=== PATIENT | female | born 1940 | race Caucasian/White ===

== ENCOUNTER 2016-09-06 10:16 | Outpatient (CLI) | payer MEDICARE, OTHER ==
--- NOTE | 2016-09-06 20:52 | Ultrasound Report ---
EXAM: THYROID ULTRASOUND EXAM DATE: 09/06/2016 10:25 AM. CLINICAL HISTORY: THROAT IRRITATION, HYPOTHYROIDISM. COMPARISON: None. TECHNIQUE: Real time sonographic imaging of the thyroid was performed by the linen manager. Multiple re presentative static images were saved for review. FINDINGS: THYROID GLAND: Right Lobe: 3.8 x 1.9 x 1.6 cm, volume 6 cc. Normal background echotexture. Right Lobe Nodules: Well-circumscribed 1.3 x 1.0 x 1.2 cm nodule in the mid lobe is homogeneously hyp erechoic except for a small central hypoechoic portion. The nodule has a hypoechoic rim. There is int ernal vascular flow. No calcifications. Left Lobe: 3.6 x 1.1 x 1.7 cm, volume 4 cc. Normal background echotexture. Left Lobe Nodules: Isoechoic nodule in the lower pole contains a 1.0 cm coarse calcification; the nod ule itself measures approximately 1.3 x 0.8 x 1.0 cm, although the posterior portion is obscured by s hadowing. The visualized portion of the nodule is well-circumscribed. There is mild peripheral vascul ar flow. Isthmus: 0.4 cm AP. Isthmic Nodules: None. LYMPH NODES: No adenopathy demonstrated in the central or lateral compartment. OTHER: None. IMPRESSION: Bilateral thyroid nodules as detailed above. These nodules do not currently meet criteria for tissue sampling. Follow-up thyroid ultrasound is recommended in 12 months. Management recommendations are based on 2015 [place] [employer] Management Guidelines for A dult Patients with Thyroid Nodules and Differentiated Thyroid Cancer. [facility] Referring Provider Line: [phone] SITE ID: [id number]
== END 2016-09-06 10:17 | disposition home or self-care (01) ==
LOC: DI 10:16
PROVIDERS: ATTEND Family Medicine
DX: E04.2 Nontoxic multinodular goiter (principal)
CPT/HCPCS: 76536

== ENCOUNTER 2016-10-17 09:24 | Outpatient (CLI) | payer MEDICARE, OTHER ==
--- NOTE | 2016-10-17 12:29 | XRAY Report ---
SINGLE AND DOUBLE CONTRAST UPPER GI: 10/17/2016 CLINICAL INDICATION: Dysphagia. FINDINGS: Single and double contrast upper GI was performed. There is a small Zenker's diverticulum in the cervical esophagus. There is a stricturing at the inferior aspect of the cervical esophagus, w hich produced obstruction to passage of the 13 mm barium pill despite multiple attempts. The mid to d istal portions of the esophagus appear unremarkable. No other focal stricturing is seen. Gastroesopha geal reflux was seen throughout the course of the study. The stomach demonstrates a normal fold patte rn. The duodenal cap distends normally. The duodenal C-loop is unremarkable. Multiple duodenal and je junal diverticula are noted. IMPRESSION: 1. STRICTURING OF THE LOWER CERVICAL ESOPHAGUS, WHICH DID OBSTRUCT THE PASSAGE OF THE 13 MM BARIUM PI LL. 2. SMALL ZENKER'S DIVERTICULUM ARISING JUST ABOVE THE LEVEL OF THE CERVICAL ESOPHAGEAL STRICTURING. 3. GASTROESOPHAGEAL REFLUX. FLUOROSCOPY TIME: 3 MINUTES 52 SECONDS; 32 SPOT IMAGES OBTAINED. JOB #: [id number] EXT JOB #:[id number]
== END 2016-10-17 09:25 | disposition home or self-care (01) ==
LOC: DI 09:24
PROVIDERS: ATTEND Family Medicine
DX: K22.2 Esophageal obstruction (principal); K22.5 Diverticulum of esophagus, acquired; K21.9 Gastro-esophageal reflux disease without esophagitis
CPT/HCPCS: 74246

== ENCOUNTER 2016-10-31 07:59 | Day surgery (SDC) | payer MEDICARE, OTHER ==
[2016-10-31] MEDS ORDERED: LACTATED RINGERS 1,000 ML IV ONE (08:34)
[2016-10-31] MEDS ORDERED: fentaNYL 100 MCG/2 ML VIAL IVP ONE (09:15)
[2016-10-31] MEDS ORDERED: MIDAZOLAM 2 MG/2 ML VIAL IVP ONE (09:15)
[2016-10-31] MEDS ORDERED: BENZOCAINE/TETRACAINE/BUTAMBEN SPRAY 56 GM TOP ONE (09:21)
[2016-10-31] MEDS ORDERED: LIDO GARGLE 30 ML BOTTLE TOP ONE (09:21)
[2016-10-31 10:48] VITALS: BP 135/58
== END 2016-10-31 08:00 | disposition home or self-care (01) ==
LOC: SDS 07:59
PROVIDERS: ATTEND Surgery
PROC: 0DB38ZX Excision of Lower Esophagus, Via Natural or Artificial Opening Endoscopic, Diagnostic (ICD-10-PCS; principal; 2016-10-31 09:00)
DX: R13.10 Dysphagia, unspecified (principal); K20.9 Esophagitis, unspecified; K44.9 Diaphragmatic hernia without obstruction or gangrene; K21.9 Gastro-esophageal reflux disease without esophagitis; Z88.5 Allergy status to narcotic agent; Z87.891 Personal history of nicotine dependence
CPT/HCPCS: 43239; A9270; J7120

== ENCOUNTER 2017-01-02 14:41 | Outpatient (CLI) | payer MEDICARE, OTHER ==
--- NOTE | 2017-01-02 16:41 | MRI Report ---
EXAM: MRI BRAIN WITHOUT CONTRAST EXAM DATE: 01/02/2017 04:23 PM. CLINICAL HISTORY: BURNING MOUTH SYNDROME, NUMBNESS OF TONGUE. COMPARISON: None. TECHNIQUE: Multiplanar, multisequence T1-weighted and fluid-sensitive MR sequences of the brain were performed. Sequences optimized for routine evaluation. Other: None. IV Contrast: None. FINDINGS: The study is mildly limited by patient motion. Brain Volume: Dtdi-gw-ohvtnfni diffuse cerebral volume loss with ex vacuo dilatation of the ventricle s and sulci, appropriate for age. Parenchyma/Dura: No mass, acute infarct or hemorrhage. Scattered T2/FLAIR hyperintense periventricula r, deep, and subcortical white matter lesions within cerebral hemispheres bilaterally. No parenchymal microhemorrhages. Ventricles/Cisterns: Mild to moderate ex vacuo dilatation. No hydrocephalus. No abnormal extra-axial fluid collection or hemorrhage. Sinuses: No acute appearing sinus disease. Bones: No focal pathologic appearing marrow signal changes. Other: Status post bilateral lens replacement surgery. The visualized orbits are otherwise unremarkab le. IMPRESSION: 1. No evidence of acute or subacute infarct, intracranial hemorrhage, mass, midline shift, or hydroce phalus. 2. Scattered T2/FLAIR hyperintense periventricular, deep, and subcortical white matter lesions within cerebral hemispheres bilaterally. While nonspecific, these likely represent sequela of chronic micro angiopathy. 3. Xilr-ze-bonnjzrv diffuse cerebral volume loss with ex vacuo dilatation of the ventricles and sulci , appropriate for age. Referring Provider Line: [phone] SITE ID: [id number]
== END 2017-01-02 14:42 | disposition home or self-care (01) ==
LOC: DI 14:41
PROVIDERS: ATTEND Family Medicine
DX: K14.6 Glossodynia (principal); R20.0 Anesthesia of skin
CPT/HCPCS: 70551

== ENCOUNTER 2017-09-22 21:01 | Outpatient (CLI) | payer MEDICARE, OTHER ==
--- NOTE | 2017-09-23 09:01 | Ultrasound Report ---
Procedure Date: 09/22/2017 Accession Number: [id number] / [id number] Procedure: US - Head or Neck Soft Tissue CPT Code: FULL RESULT: EXAM: Head or Neck Soft Tissue DATE: 09/22/2017 10:23 PM CLINICAL HISTORY: HYPOTHYROIDISM COMPARISON: Neck ultrasound 09/06/2016.. TECHNIQUE: Real time sonographic imaging of the thyroid was performed by the income tax analyst. Multiple brewery representative static images were saved for review. FINDINGS: THYROID GLAND: The background parenchyma of both lobes of the thyroid demonstrates subjectively increased vascularity on color Doppler. Right Lobe: 3.9 x 1.9 x 1.8 cm. Normal background echotexture. Right Lobe Nodules: Interval enlargement of a 1.4 x 1.1 x 1.5 cm hyperechoic nodule with a hypoechoic center which demonstrates flow on color Doppler (previously 1.3 x 1.0 x 1.2 cm). Left Lobe: 3.6 x 1.4 x 1.5 cm. Normal background echotexture. Left Lobe Nodules: A calcified 1.3 x 1.0 x 1.0 cm nodule in the left lobe of the thyroid is stable.. Isthmus: 0.3 cm AP. Isthmic Nodules: None. LYMPH NODES: No adenopathy demonstrated in the central or lateral compartment. OTHER: None. IMPRESSION: 1. Bilateral thyroid nodules which do not currently meet criteria for tissue sampling. Recommendation: Follow-up thyroid ultrasound in 12 months. Management recommendations are based on 2015 [place] [employer] Management Guidelines for Adult Patients with Thyroid Nodules and Differentiated Thyroid Cancer. [facility]
== END 2017-09-22 21:02 | disposition home or self-care (01) ==
LOC: DI 21:01
PROVIDERS: ATTEND Family Medicine
DX: E04.2 Nontoxic multinodular goiter (principal); E03.9 Hypothyroidism, unspecified
CPT/HCPCS: 76536

== ENCOUNTER 2018-10-22 10:42 | Outpatient (CLI) | payer MEDICARE, OTHER ==
--- NOTE | 2018-10-22 13:45 | Ultrasound Report ---
Reason: MULTIPLE THYROID NODULES Procedure Date: 10/22/2018 Accession Number: [id number] / [id number] Procedure: US - Head or Neck Soft Tissue CPT Code: FULL RESULT: EXAM: THYROID ULTRASOUND EXAM DATE: 10/22/2018 11:45 AM. CLINICAL HISTORY: Follow-up multiple thyroid nodules. COMPARISON: HEAD OR NECK SOFT TISSUE 09/06/2016 10:24 AM. TECHNIQUE: Real time sonographic imaging of the thyroid was performed by the butane compressor operator. Multiple leather goods sales representative static images were saved for review. FINDINGS: THYROID GLAND: Right Lobe: 3.7 x 2.1 x 1.7 cm, volume 6.3 cc. Normal background echotexture. Right Lobe Nodules: An echogenic solid well-defined nodule in the lower pole measures 1.3 x 1.1 x 1.5 cm, previously 1.3 cm, stable to slightly increased in size. Left Lobe: 3.9 x 1.4 x 1.4 cm, volume 3.6 cc. Normal background echotexture. Left Lobe Nodules: A solid thyroid nodule in the lower pole containing a central rim calcified structure is again identified measuring proximal 1.5 x 0.8 x 1.2 cm, previously 1.3 cm, stable to slightly increased in size. Isthmus: 0.4 cm AP. Isthmic Nodules: None. LYMPH NODES: No adenopathy demonstrated in the central or lateral compartment. OTHER: None. IMPRESSION: Bilateral solid thyroid nodules are either stable to minimally increased in size compared to a 2017 exam measuring 1.5 cm each. An additional 12 month follow-up may be considered. Management recommendations are based on 2015 [place] [employer] Management Guidelines for Adult Patients with Thyroid Nodules and Differentiated Thyroid Cancer. [facility]
== END 2018-10-22 10:43 | disposition home or self-care (01) ==
LOC: DI 10:42
PROVIDERS: ATTEND Family Medicine
DX: E04.2 Nontoxic multinodular goiter (principal)
CPT/HCPCS: 76536

== ENCOUNTER 2019-09-08 08:00 | Outpatient (CLI) | payer MEDICARE, OTHER ==
[2019-09-08 18:33] LABS: BASOPHILS % (AUTO) 0.3 %; EOSINOPHILS # (AUTO) 0.1 10^3/uL (0.0-0.7); EOSINOPHILS % (AUTO) 1.4 %; HGB - HEMOGLOBIN 12.8 g/dL (12.0-16.0); LYMPHOCYTES # (AUTO) 1.7 10^3/uL (1.5-3.5); LYMPHOCYTES % (AUTO) 29.7 %; MEAN CORPUSCULAR HEMOGLOBIN 30.3 pg (27.0-31.0); MEAN CORPUSCULAR HGB CONC 32.6 g/dL (32.0-36.0); MEAN CORPUSCULAR VOLUME 92.9 fL (81.0-99.0); MONOCYTES # (AUTO) 0.3 10^3/uL (0.0-1.0); MONOCYTES % (AUTO) 5.9 %; NEUTROPHILS # (AUTO) 3.6 10^3/uL (1.5-6.6); NEUTROPHILS % (AUTO) 62.5 %; PLT - PLATELET COUNT 227 10^3/uL (130-450); RED BLOOD COUNT 4.23 10^6/uL (4.20-5.40); RED CELL DISTRIBUTION WIDTH 13.1 % (12.0-15.0); WHITE BLOOD COUNT 5.8 x10^3/uL (4.8-10.8)
[2019-09-08 18:37] LABS: ALBUMIN 4.2 g/dL (3.2-5.5); ALBUMIN/GLOBULIN RATIO 1.4 (1.0-2.2); ALKALINE PHOSPHATASE 85 IU/L (42-121); ALT ALANINE AMINOTRANSFERASE 23 IU/L (10-60); AST ASPARTATE AMINOTRANSFERASE 22 IU/L (10-42); BILIRUBIN,TOTAL 0.6 mg/dL (0.2-1.0); BUN - BLOOD UREA NITROGEN 26 mg/dL (6-20); CALCIUM 9.2 mg/dL (8.5-10.3); CARBON DIOXIDE - CO2 24 mmol/L (21-32); CHLORIDE 106 mmol/L (101-111); CHOL/HDL RATIO 3.1 (<4.4); CHOLESTEROL 255 mg/dL; CREATININE 0.8 mg/dL (0.4-1.0); GLUCOSE 140 mg/dL (70-100); HDL CHOLESTEROL 83 mg/dL; LDL CHOLESTEROL,CALCULATED 150 mg/dL; LDL/HDL RATIO 1.8 (<4.4); SODIUM 139 mmol/L (135-145); TOTAL PROTEIN 7.1 g/dL (6.7-8.2); VLDL CHOLESTEROL 22 mg/dL
[2019-09-08 18:53] LABS: HB2 TOTAL 13.4 g/dL; HEMOGLOBIN A1C 0.56 g/dL
== END 2019-09-08 23:59 | disposition home or self-care (01) ==
LOC: LAB.WCP 08:00
PROVIDERS: ATTEND Family Medicine
DX: M81.0 Age-related osteoporosis without current pathological fracture (principal); E78.9 Disorder of lipoprotein metabolism, unspecified; E66.3 Overweight; E04.2 Nontoxic multinodular goiter; K22.70 Barrett's esophagus without dysplasia
CPT/HCPCS: 36415; 80053; 80061; 83036; 83721; 84443; 85025

== ENCOUNTER 2019-09-15 15:22 | Outpatient (CLI) | payer MEDICARE, OTHER ==
--- NOTE | 2019-09-15 16:47 | DEXA Report ---
Reason: OSTEOPOROSIS Procedure Date: 09/15/2019 Accession Number: [id number] / [id number] Procedure: DEX - Dexa Spine and/or Hip CPT Code: Final Report FULL RESULT: PROCEDURE: Dexa Spine and/or Hip INDICATIONS: OSTEOPOROSIS TECHNIQUE: Dual energy x-ray absorptiometry (DXA) was performed on a [employer] System. Regions measured are the AP Spine, femoral neck, and if needed forearm. COMPARISON: None. FINDINGS: Lumbar Spine: Bone Mineral Density 1.095 g/cm/cm,T score -0.9, normal Left Hip: Bone Mineral Density 0.738 g/cm/cm,T score -2.1, osteopenia Left Femoral Neck: Bone Mineral Density 0.686 g/cm/cm, T score -2.5, osteoporosis (T score greater or equal to -1.0: NORMAL) (T score from -1.1 to -2.4: OSTEOPENIA) (T score less than or equal to -2.5 to: OSTEOPOROSIS) Impression: Osteoporosis Patients with diagnosis of osteoporosis or osteopenia should have regular bone mineral density assessment. For those eligible for Medicare, routine testing is allowed once every 2 years. Testing frequency can be increased for patients who have rapidly progressing disease or for those who are receiving medical therapy to restore bone mass. Reviewed by: Ayleen Mcarthur MD, PhD on 09/15/2019 4:45 PM PDT Approved by: Ayleen Mcarthur MD, PhD on 09/15/2019 4:45 PM PDT Station ID: [id number]
== END 2019-09-15 15:23 | disposition home or self-care (01) ==
LOC: DI 15:22
PROVIDERS: ATTEND Family Medicine
DX: M81.0 Age-related osteoporosis without current pathological fracture (principal); M85.88 Other specified disorders of bone density and structure, other site
CPT/HCPCS: 77080

== ENCOUNTER 2019-09-15 15:25 | Outpatient (CLI) | payer MEDICARE, OTHER ==
--- NOTE | 2019-09-15 18:13 | Ultrasound Report ---
PROCEDURE: Head or Neck Soft Tissue INDICATIONS: MULTIPLE THYROID NODULES TECHNIQUE: Real-time scanning was performed of the thyroid gland, with image documentation. COMPARISON: 10/22/2018 and 09/22/2017 FINDINGS: Right: Thyroid lobe measures 4.4 x 1.8 x 1.6 cm, and is homogeneous in echotexture. Left: Thyroid lobe measures 4.4 x 1.5 x 1.2 cm, and is homogenous in echotexture. Isthmus: 5 mm thick. Nodule number: One Location: Lower pole of right thyroid lobe Size: 1.4 x 1.3 x 1.5 cm. Previously measures 1.3 x 1.1 x 1.5 Composition: Predominantly solid Echogenicity: Hyperechoic Shape: wider than tall. Margins: Anselmo Echogenic foci: None Total points: 4 ACR TI-RADS category: 4 Nodule number: Two Location: Mid pole of left thyroid lobe Size: 1.6 x 1 x 0.9 cm compared to 1.5 x 1.2 x 10.8 cm in size on previous study. Composition: Predominantly solid Echogenicity: Isoechoic Shape: wider than tall. Margins: Smooth-walled Echogenic foci: Macrocalcification Total points: 4 ACR TI-RADS category: 4 IMPRESSION: Two moderately suspicious nodules again noted in bilateral thyroid lobes as described ab ove not significantly changed in size and appearance from previous study. Continued sonographic follo w-up is recommended. ACR TI-RADS definitions and recommendations: TI-RADS 1 (benign): 0 points. FNA not needed. TI-RADS 2 (not suspicious): 2 points. FNA not needed. TI-RADS 3 (mildly suspicious): 3 points. ? FNA if 2.5 cm or larger, follow up if 1.5 cm or larger (at 1, 3, and 5 years). TI-RADS 4 (moderately suspicious): 4-6 points. ? FNA if 1.5 cm or larger, follow up if 1 cm or larger (at 1, 2, 3, and 5 years). TI-RADS 5 (highly suspicious): 7 points or more. ? FNA if 1 cm or larger, follow up if 0.5 cm or larger (every year for 5 years). Reviewed by: Forest Roberts MD on 09/15/2019 6:11 PM PDT Approved by: Forest Roberts MD on 09/15/2019 6:11 PM PDT Station ID: [id number]
== END 2019-09-15 15:26 | disposition home or self-care (01) ==
LOC: DI 15:25
PROVIDERS: ATTEND Family Medicine
DX: E04.2 Nontoxic multinodular goiter (principal); M81.0 Age-related osteoporosis without current pathological fracture; M85.88 Other specified disorders of bone density and structure, other site
CPT/HCPCS: 76536; 77080

== ENCOUNTER 2019-12-26 12:03 | Outpatient (CLI) | payer MEDICARE, OTHER ==
[2019-12-26] MEDS ORDERED: BUFFERED LIDOCAINE 10 ML SYRINGE ONE (12:17)
[2019-12-26] MEDS ORDERED: BUFFERED LIDOCAINE 10 ML SYRINGE IU ONE (14:05)
--- NOTE | 2019-12-26 16:58 | Ultrasound Report ---
PROCEDURE: FNA Bx w/US Gnd 1st les INDICATIONS: MULTIPLE THYROID NODULES TECHNIQUE: The indications, alternatives, benefits, risks, and complications of the procedure were explained to the patient. Written informed consent was obtained and placed in the chart. The area of interest wa s examined sonographically and a site was chosen for ultrasound guided percutaneous sampling. The sk in was prepared and draped in the usual fashion, and anesthetized with 1% lidocaine infiltrated from the skin down to the lesion. Multiple passes were then performed, with contents emptied into an appr [facility] pathology specimen container. A bandage was applied to the area of access at completion of t he study. COMPARISON: Thyroid ultrasound 09/15/2019 FINDINGS: Location(s) of lesion(s) sampled: Right thyroid lobe [place]: 25 gauge hypodermic needles. Number of passes: 6 Medications: 1% lidocaine for local anaesthesia. Complications: None. IMPRESSION: Successful ultrasound-guided right thyroid lobe nodule fine needle aspiration, with cytology results pending. Reviewed by: Ene Victoria MD on 12/26/2019 4:57 PM PDT Approved by: Ene Victoria MD on 12/26/2019 4:57 PM PDT Station ID: [id number]
--- NOTE | 2019-12-27 15:38 | Ultrasound Report ---
PROCEDURE: FNA Bx w/US Gdn Ea Addl INDICATIONS: MULTINODULAR THYROID NODULES- FNA BILAT TECHNIQUE: The indications, alternatives, benefits, risks, and complications of the procedure were explained to the patient. Written informed consent was obtained and placed in the chart. The area of interest wa s examined sonographically and a site was chosen for ultrasound guided percutaneous sampling. The sk in was prepared and draped in the usual fashion, and anesthetized with 1% lidocaine infiltrated from the skin down to the lesion. Multiple passes were then performed, with [facility] A bandage was applied to the area of access at completion of t he study. COMPARISON: Ultrasound thyroid 09/15/2019 FINDINGS: Location(s) of lesion(s) sampled: Left lobe [place]: 25 gauge hypodermic needles. Number of passes: 6 Medications: 1% lidocaine for local anaesthesia. Complications: None. IMPRESSION: Successful ultrasound-guided left thyroid lobe fine needle aspiration, with cytology results pending. Reviewed by: Ene Victoria MD on 12/27/2019 3:36 PM PDT Approved by: Ene Victoria MD on 12/27/2019 3:36 PM PDT Station ID: [id number]
== END 2019-12-26 12:04 | disposition home or self-care (01) ==
LOC: DI 12:03
PROVIDERS: ATTEND Otolaryngology
DX: E04.2 Nontoxic multinodular goiter (principal)
CPT/HCPCS: 10005; 10006

== ENCOUNTER 2021-08-26 09:20 | Outpatient (CLI) | payer MEDICARE, OTHER ==
[2021-08-26 12:08] LABS: BASOPHILS % (AUTO) 0.4 %; EOSINOPHILS # (AUTO) 0.1 10^3/uL (0.0-0.7); EOSINOPHILS % (AUTO) 1.9 %; HCT - HEMATOCRIT 40.5 % (37.0-47.0); HGB - HEMOGLOBIN 13.3 g/dL (12.0-16.0); LYMPHOCYTES # (AUTO) 1.6 10^3/uL (1.5-3.5); LYMPHOCYTES % (AUTO) 29.6 %; MEAN CORPUSCULAR HEMOGLOBIN 30.7 pg (27.0-31.0); MEAN CORPUSCULAR HGB CONC 32.8 g/dL (32.0-36.0); MEAN CORPUSCULAR VOLUME 93.5 fL (81.0-99.0); MONOCYTES # (AUTO) 0.4 10^3/uL (0.0-1.0); MONOCYTES % (AUTO) 7.9 %; NEUTROPHILS # (AUTO) 3.2 10^3/uL (1.5-6.6); PLT - PLATELET COUNT 204 10^3/uL (130-450); RED BLOOD COUNT 4.33 10^6/uL (4.20-5.40); RED CELL DISTRIBUTION WIDTH 13.4 % (12.0-15.0); WHITE BLOOD COUNT 5.3 x10^3/uL (4.8-10.8)
[2021-08-26 12:23] LABS: THYROID STIMULATING HORMONE 4.39 uIU/mL (0.34-5.60)
[2021-08-26 12:25] LABS: ALBUMIN 4.3 g/dL (3.2-5.5); ALBUMIN/GLOBULIN RATIO 1.4 (1.0-2.2); ALKALINE PHOSPHATASE 68 IU/L (42-121); ALT ALANINE AMINOTRANSFERASE 18 IU/L (10-60); AST ASPARTATE AMINOTRANSFERASE 23 IU/L (10-42); BILIRUBIN,TOTAL 0.7 mg/dL (0.2-1.0); BUN - BLOOD UREA NITROGEN 19 mg/dL (6-20); CALCIUM 9.6 mg/dL (8.5-10.3); CARBON DIOXIDE - CO2 26 mmol/L (21-32); CHLORIDE 107 mmol/L (101-111); CHOL/HDL RATIO 2.9 (<4.4); CHOLESTEROL 271 mg/dL; CREATININE 0.8 mg/dL (0.4-1.0); GFR - MDRD 69 (>89); GLUCOSE 102 mg/dL (70-100); HDL CHOLESTEROL 92 mg/dL; LDL CHOLESTEROL,CALCULATED 167 mg/dL; LDL/HDL RATIO 1.8 (<4.4); POTASSIUM 4.3 mmol/L (3.5-5.0); SODIUM 142 mmol/L (135-145); TOTAL PROTEIN 7.4 g/dL (6.7-8.2); TRIGLYCERIDES 58 mg/dL; VLDL CHOLESTEROL 12 mg/dL
== END 2021-08-26 09:21 | disposition home or self-care (01) ==
LOC: LAB.N 09:20
PROVIDERS: ATTEND Physician Assistant
DX: E78.5 Hyperlipidemia, unspecified (principal); E03.9 Hypothyroidism, unspecified; Z13.9 Encounter for screening, unspecified
CPT/HCPCS: 36415; 80053; 80061; 83721; 84443; 85025

== ENCOUNTER 2021-09-26 08:00 | Outpatient (CLI) | payer MEDICARE, OTHER ==
[2021-09-26 22:35] LABS: BACTERIAL VAGINOSIS DNA NEGATIVE (NEGATIVE); CANDIDA GLABRATA DNA NEGATIVE (NEGATIVE); CANDIDA GROUP DNA POSITIVE (NEGATIVE); CANDIDA KRUSEI DNA NEGATIVE (NEGATIVE); TRICHOMONAS VAGINALIS DNA NEGATIVE (NEGATIVE)
== END 2021-09-26 23:59 | disposition home or self-care (01) ==
LOC: LAB.N 08:00
PROVIDERS: ATTEND Physician Assistant Medical
DX: B37.3 Candidiasis of vulva and vagina (principal)
CPT/HCPCS: 81514

== ENCOUNTER 2021-10-03 15:15 | Outpatient (CLI) | payer MEDICARE, OTHER ==
--- NOTE | 2021-10-08 09:12 | Mammography Report ---
BILATERAL DIGITAL SCREENING MAMMOGRAM 3D/2D: 10/03/2021 CLINICAL: Family history of breast cancer. Routine screening. Comparison is made to exams dated: 11/30/2015 mammogram - [facility] and 09/15/2012 mammogram - [facility]. The tissue of both breasts is extremely dense, which lowers the sensitivi ty of mammography. There are benign calcifications in the right breast. There also are benign vascular calcifications i n the left breast. No significant masses, calcifications, or other findings are seen in either breast. There has been no significant interval change. IMPRESSION: BENIGN There is no mammographic evidence of malignancy. A 1 year screening mammogram is recommended. Based on the Tyrer Cuzick model (a risk assessment model) the patients lifetime risk is 9.9% and her 10 year risk is 0.0%. According to the ACR, ACS, and NCCN guidelines, an annual breast MRI exam sunshine g with mammogram is recommended if the patients lifetime risk is 20% or greater. This exam was interpreted at Station ID: [id number]. NOTE: For mammograms, a report in lay terms will be sent to the patient. Approximately 15% of breast malignancies will not be visualized mammographically. In the management of a palpable breast mass, a negative mammogram must not discourage biopsy of a clinically suspicious lesion. Electronically Signed By: Earnest luevano/helen:10/08/2021 07:50:43 ACR BI-RADS Category 2: Benign Finding(s) 3342F PARENCHYMAL PATTERN: (VD) - The breast(s) demonstrate(s) extremely dense parenchyma, limiting the sen sitivity of mammography. BI-RADS CATEGORY: (2) - 2 RECOMMENDATION: (ANNUAL) - Recommend routine annual screening mammography. [id number] 1 year screening LATERALITY: (B)
== END 2021-10-03 15:16 | disposition home or self-care (01) ==
LOC: DI.N 15:15
PROVIDERS: ATTEND Physician Assistant
DX: Z12.31 Encounter for screening mammogram for malignant neoplasm of breast (principal); Z80.3 Family history of malignant neoplasm of breast

== ENCOUNTER 2021-11-06 13:31 | Outpatient (CLI) | payer MEDICARE, OTHER ==
[2021-11-06 17:41] LABS: BASOPHILS % (AUTO) 0.3 %; EOSINOPHILS # (AUTO) 0.1 10^3/uL (0.0-0.7); EOSINOPHILS % (AUTO) 1.8 %; HCT - HEMATOCRIT 40.4 % (37.0-47.0); HGB - HEMOGLOBIN 13.4 g/dL (12.0-16.0); LYMPHOCYTES # (AUTO) 1.8 10^3/uL (1.5-3.5); LYMPHOCYTES % (AUTO) 29.3 %; MEAN CORPUSCULAR HEMOGLOBIN 30.5 pg (27.0-31.0); MEAN CORPUSCULAR HGB CONC 33.2 g/dL (32.0-36.0); MEAN PLATELET VOLUME 10.6 fL (7.9-10.8); MONOCYTES # (AUTO) 0.4 10^3/uL (0.0-1.0); MONOCYTES % (AUTO) 6.8 %; NEUTROPHILS # (AUTO) 3.7 10^3/uL (1.5-6.6); NEUTROPHILS % (AUTO) 61.6 %; PLT - PLATELET COUNT 216 10^3/uL (130-450); RED BLOOD COUNT 4.39 10^6/uL (4.20-5.40); RED CELL DISTRIBUTION WIDTH 12.3 % (12.0-15.0); WHITE BLOOD COUNT 6.1 x10^3/uL (4.8-10.8)
[2021-11-06 17:43] LABS: BILIRUBIN,URINE NEGATIVE (NEGATIVE); GLUCOSE, URINE (UA) NEGATIVE (NEGATIVE); KETONES,URINE (UA) NEGATIVE (NEGATIVE); LEUKOCYTE ESTERASE, URINE SMALL (NEGATIVE); NITRITE,URINE NEGATIVE (NEGATIVE); OCCULT BLOOD,URINE NEGATIVE (NEGATIVE); PH,URINE 5.5 PH (5.0-7.5); PROTEIN,URINE NEGATIVE (NEGATIVE); UROBILINOGEN,URINE 0.2 (NORMAL) E.U./dL (NORMAL)
[2021-11-06 17:48] LABS: ALBUMIN 4.4 g/dL (3.2-5.5); ALBUMIN/GLOBULIN RATIO 1.6 (1.0-2.2); BILIRUBIN,TOTAL 0.6 mg/dL (0.2-1.0); CALCIUM 9.6 mg/dL (8.5-10.3); CLARITY,URINE HAZY (CLEAR); CREATININE 0.8 mg/dL (0.4-1.0); POTASSIUM 4.3 mmol/L (3.5-5.0); TOTAL PROTEIN 7.2 g/dL (6.7-8.2)
[2021-11-06 17:57] LABS: BACTERIA,URINE Moderate /HPF (None Seen); CRYSTALS,URINE 3-5 Calcium Oxalate /LPF; RBC,URINE 0-5 /HPF (0-5); SQUAMOUS EPITHELIAL CELL,UR MANY Squamous (<= Few)
== END 2021-11-06 13:32 | disposition home or self-care (01) ==
LOC: LAB.N 13:31
PROVIDERS: ATTEND Nurse Practitioner
DX: M54.50 Low back pain, unspecified (principal); R53.83 Other fatigue; R30.0 Dysuria
CPT/HCPCS: 36415; 80053; 81001; 81003; 85025; 87086

== ENCOUNTER 2021-11-06 13:35 | Outpatient (CLI) | payer MEDICARE, OTHER ==
--- NOTE | 2021-11-06 16:41 | XRAY Report ---
PROCEDURE: Lumbar Spine 2 View INDICATIONS: LOW BACK PX TECHNIQUE: 3 views of the lumbar spine were acquired. COMPARISON: None. FINDINGS: Bones: 5 jgr-fdj-tdmokup vertebrae are present. Mild scoliosis. No vertebral body compression fractu res. No suspicious bony lesions. Small vertebral body osteophytes. Lower lumbar spine facet joint h ypertrophy. Soft tissues: Overlying bowel gas pattern is normal. No suspicious soft tissue calcifications. Gómez g bases are clear. Vascular calcifications. Prominent stool the colon. IMPRESSION: No compression fracture. Moderate degenerative change. Reviewed by: Earnest Shook MD on 11/06/2021 4:39 PM PDT Approved by: Earnest Shook MD on 11/06/2021 4:39 PM PDT Station ID: [id number]
== END 2021-11-06 13:36 | disposition home or self-care (01) ==
LOC: DI.N 13:35
PROVIDERS: ATTEND Nurse Practitioner
DX: M47.816 Spondylosis without myelopathy or radiculopathy, lumbar region (principal); M54.50 Low back pain, unspecified; R53.83 Other fatigue; R30.0 Dysuria
CPT/HCPCS: 36415; 80053; 81001; 81003; 85025; 87086

== ENCOUNTER 2022-01-16 11:00 | Outpatient (CLI) | payer MEDICARE, OTHER ==
--- NOTE | 2022-01-16 16:23 | DEXA Report ---
PROCEDURE: Dexa Spine and/or Hip INDICATIONS: OSTEOPOROSIS TECHNIQUE: Dual energy x-ray absorptiometry (DXA) was performed on a [employer] System. Regions measur ed are the AP Spine, femoral neck, and if needed forearm. COMPARISON: 09/15/2019 FINDINGS: Lumbar Spine: Bone Mineral Density 1.047 g/cm/cm,T score -1.1, osteopenia. Previous T score -1.0. Left Hip: Bone Mineral Density 0.730 g/cm/cm,T score -2.2, osteopenia. Previous T score -2.1. Left Femoral Neck: Bone Mineral Density 0.746 g/cm/cm, T score -2.1, osteopenia. Previous T score -2.5. (T score greater or equal to -1.0: NORMAL) (T score from -1.1 to -2.4: OSTEOPENIA) (T score less than or equal to -2.5 to: OSTEOPOROSIS) Impression: Osteopenia. Current and previous T scores as above. Patients with diagnosis of osteoporosis or osteopenia should have regular bone mineral density assess ment. For those eligible for Medicare, routine testing is allowed once every 2 years. Testing frequ ency can be increased for patients who have rapidly progressing disease or for those who are receivin g medical therapy to restore bone mass. Reviewed by: Demetri Aponte MD on 01/16/2022 4:22 PM PST Approved by: Demetri Aponte MD on 01/16/2022 4:22 PM PST Station ID: [id number]
== END 2022-01-16 11:01 | disposition home or self-care (01) ==
LOC: DI 11:00
PROVIDERS: ATTEND Nurse Practitioner
DX: M85.89 Other specified disorders of bone density and structure, multiple sites (principal)

== ENCOUNTER 2022-03-22 20:11 | Outpatient (CLI) | payer MEDICARE, OTHER | END 2022-03-22 20:12 | disposition EMS.NT | LOC: EMS 20:11 | DX: F41.9 Anxiety disorder, unspecified (principal); R06.02 Shortness of breath; Z63.6 Dependent relative needing care at home ==

== ENCOUNTER 2022-06-02 09:06 | Outpatient (CLI) | payer MEDICARE, OTHER ==
[2022-06-02 13:01] LABS: BASOPHILS % (AUTO) 0.3 %; EOSINOPHILS # (AUTO) 0.1 10^3/uL (0.0-0.7); HCT - HEMATOCRIT 41.3 % (37.0-47.0); HGB - HEMOGLOBIN 12.9 g/dL (12.0-16.0); LYMPHOCYTES # (AUTO) 1.5 10^3/uL (1.5-3.5); LYMPHOCYTES % (AUTO) 24.2 %; MEAN CORPUSCULAR HEMOGLOBIN 30.1 pg (27.0-31.0); MEAN CORPUSCULAR HGB CONC 31.2 g/dL (32.0-36.0); MEAN CORPUSCULAR VOLUME 96.5 fL (81.0-99.0); MEAN PLATELET VOLUME 10.1 fL (7.9-10.8); MONOCYTES # (AUTO) 0.5 10^3/uL (0.0-1.0); MONOCYTES % (AUTO) 7.7 %; NEUTROPHILS % (AUTO) 65.5 %; PLT - PLATELET COUNT 231 10^3/uL (130-450); RED BLOOD COUNT 4.28 10^6/uL (4.20-5.40); RED CELL DISTRIBUTION WIDTH 13.2 % (12.0-15.0); WHITE BLOOD COUNT 6.1 x10^3/uL (4.8-10.8)
[2022-06-02 13:36] LABS: THYROID STIMULATING HORMONE 3.99 uIU/mL (0.34-5.60)
[2022-06-02 13:38] LABS: FREE T4 (FREE THYROXINE) 0.99 ng/dL (0.58-1.64)
[2022-06-02 13:43] LABS: ALBUMIN 4.1 g/dL (3.2-5.5); ALBUMIN/GLOBULIN RATIO 1.5 (1.0-2.2); ALKALINE PHOSPHATASE 69 IU/L (42-121); ALT ALANINE AMINOTRANSFERASE 25 IU/L (10-60); AST ASPARTATE AMINOTRANSFERASE 26 IU/L (10-42); BILIRUBIN,TOTAL 0.7 mg/dL (0.2-1.0); BUN - BLOOD UREA NITROGEN 26 mg/dL (6-20); CALCIUM 9.6 mg/dL (8.5-10.3); CARBON DIOXIDE - CO2 28 mmol/L (21-32); CHLORIDE 106 mmol/L (101-111); CHOL/HDL RATIO 2.8 (<4.4); CHOLESTEROL 247 mg/dL; CREATININE 0.8 mg/dL (0.4-1.0); GFR - MDRD 69 (>89); GLUCOSE 103 mg/dL (70-100); HDL CHOLESTEROL 89 mg/dL; LDL CHOLESTEROL,CALCULATED 141 mg/dL; LDL/HDL RATIO 1.6 (<4.4); POTASSIUM 4.4 mmol/L (3.5-5.0); SODIUM 139 mmol/L (135-145); TOTAL PROTEIN 6.8 g/dL (6.7-8.2); TRIGLYCERIDES 85 mg/dL; VLDL CHOLESTEROL 17 mg/dL
[2022-06-02 13:57] LABS: ESTIMATED AVERAGE GLUCOSE 117 mg/dL (70-100); HEMOGLOBIN A1c% 5.7 % (4.27-6.07)
[2022-06-02 18:34] LABS: MICROALBUM/CREATININE RATIO,UR 15.6 ug/mg (<30.0); MICROALBUMIN,URINE 1.5 mg/dL (0-300.0)
== END 2022-06-02 09:07 | disposition home or self-care (01) ==
LOC: LAB.N 09:06
PROVIDERS: ATTEND Nurse Practitioner
DX: E78.5 Hyperlipidemia, unspecified (principal); R53.83 Other fatigue; E03.9 Hypothyroidism, unspecified; R73.9 Hyperglycemia, unspecified
CPT/HCPCS: 36415; 80053; 80061; 82043; 82570; 83036; 83721; 84439; 84443; 85025

== ENCOUNTER 2022-08-11 10:01 | Outpatient (CLI) | payer MEDICARE, OTHER ==
--- NOTE | 2022-08-11 12:57 | XRAY Report ---
PROCEDURE: Thoracic Spine 3 View INDICATIONS: THORACIC BACK PAIN TECHNIQUE: 3 views of the thoracic spine were acquired. COMPARISON: None. FINDINGS: Bones: No acute fractures or dislocations. Trace levoconvex curvature of the thoracic spine. No artemio picious bony lesions. 12 pairs of ribs are noted, and appear intact where visualized. Mild multilev el degenerative endplate changes. Soft tissues: No paravertebral stripe thickening. Calcification projecting over the lower neck is l ikely a calcified thyroid nodule. IMPRESSION: No acute osseous abnormality. If symptoms persist or there is continued clinical concern, further yonny luation with MRI or CT may be helpful. Reviewed by: Demetri Bolden MD on 08/11/2022 12:55 PM PDT Approved by: Demetri Bolden MD on 08/11/2022 12:55 PM PDT Station ID: [id number]
== END 2022-08-11 10:02 | disposition home or self-care (01) ==
LOC: DI.N 10:01
PROVIDERS: ATTEND Nurse Practitioner
DX: M54.6 Pain in thoracic spine (principal)

== ENCOUNTER 2022-10-15 09:37 | Outpatient (CLI) | payer MEDICARE, OTHER | END 2022-10-15 09:38 | disposition EMS.NT | LOC: EMS 09:37 | DX: Z03.89 Encounter for observation for other suspected diseases and conditions ruled out (principal) ==

== ENCOUNTER 2022-11-14 15:52 | Outpatient (CLI) | payer MEDICARE, OTHER ==
[2022-11-14] MEDS ORDERED: ALBUTEROL 1 PUFF INH STA (17:26)
== END 2022-11-14 15:53 | disposition home or self-care (01) ==
LOC: RT 15:52
PROVIDERS: ATTEND Nurse Practitioner
DX: R06.02 Shortness of breath (principal)
CPT/HCPCS: 94060; 94729

== ENCOUNTER 2022-12-12 09:32 | Outpatient (CLI) | payer MEDICARE, OTHER ==
--- NOTE | 2022-12-12 12:33 | CT Report ---
PROCEDURE: CHEST WO INDICATIONS: SHORTNESS OF BREATH TECHNIQUE: Noncontrast 1mm axial images were acquired from the pulmonary apices to the posterior costophrenic an gles. Axial 5 mm soft tissue kernel reconstructions were performed as well as 8 mm axial MIP and cor onal and sagittal 5 mm reformations. For radiation dose reduction, the following was used: automate d exposure control, adjustment of mA and/or kV according to patient size. COMPARISON: None. FINDINGS: Image quality: Excellent. Lungs and pleura: No consolidation. No pleural effusions. No pneumothorax. Moderate emphysematous delmi nge. Punctate pulmonary nodule right upper lobe, (3/48). No mass or significant pulmonary nodules. rways are clear. Mediastinum: Heart size is normal. Moderate coronary calcifications in the LAD and left circumflex. N o pericardial effusion. No large vessel abnormality. No mediastinal adenopathy by size criteria. Chest wall and lower neck: Left thyroid calcification measuring 0.7 cm. No axillary or supraclavicula r adenopathy by size. Bones: No aggressive osseous abnormality. Upper Abdomen: Fullness at the left renal pelvis. Diverticulosis small duodenal diverticulum.. IMPRESSION: 1. No acute airspace opacity. 2. Moderate emphysematous change. 3. No mass or significant pulmonary nodules. No adenopathy demonstrated. 4. Fullness at the left renal hilum. Suspect benign peripelvic cysts over than hydronephrosis. This c an be further evaluation with ultrasound or CT IVP. Reviewed by: Earnest Shook MD on 12/12/2022 12:32 PM PDT Approved by: Eranest Shook MD on 12/12/2022 12:32 PM PDT Station ID: [id number]
== END 2022-12-12 09:33 | disposition home or self-care (01) ==
LOC: DI 09:32
PROVIDERS: ATTEND Nurse Practitioner
DX: J43.9 Emphysema, unspecified (principal)

== ENCOUNTER 2023-01-22 10:59 | Outpatient (CLI) | payer MEDICARE, OTHER ==
[2023-01-22 11:34] LABS: CREATININE 0.8 mg/dL (0.6-1.3)
[2023-01-22] MEDS ORDERED: iohexoL-300 100 ML VIAL IVP ONE (15:59)
--- NOTE | 2023-01-22 19:53 | CT Report ---
PROCEDURE: IVP INDICATIONS: ABN CHEST CT CONTRAST: 140ml omni 300 TECHNIQUE: After the administration of intravenous contrast, 5 mm thick sections acquired from the diaphragms to the symphysis. 5 mm thick coronal and sagittal reformats were acquired. For radiation dose reducti on, the following was used: automated exposure control, adjustment of mA and/or kV according to shane ent size. COMPARISON: CT chest dated 12/12/2022. FINDINGS: Image quality: Excellent. Urinary system: Both kidneys are normal in size. No hydronephrosis or nephrolithiasis on pre-contras t images. Bilateral peripelvic cysts are noted more pronounced on the left. No solid masses or compl ex cysts which require follow up. The opacified renal calyces and ureters appear normal, without fill ing defect. Bladder wall thickness is normal, accounting for underdistention. No calcified bladder s tones. No filling defect within the opacified bladder. OTHER Lung bases and heart: Lung bases are clear. Small hiatal hernia. Heart size is normal. Liver: No solid mass. Gallbladder and biliary tree: No radiopaque stones or wall thickening. No biliary dilation. Spleen: No splenomegaly. Pancreas: No pancreatic ductal dilation. Adrenals: No adrenal nodule. Bowel and peritoneum: No bowel distension. No pathologic free fluid. Diverticulosis without evidence of diverticulitis. Normal appendix. Prominent duodenal diverticulum. Abdominal Lymph nodes: No central or retroperitoneal adenopathy. Vessels: Moderate atherosclerotic calcifications of the abdominal aorta and iliac arteries without an eurysmal dilatation. Reproductive organs: Unremarkable. Pesary ring is noted. Pelvic Lymph nodes: Unremarkable. Bones: No aggressive osseous abnormality. No acute compression fractures. Other: None. IMPRESSION: 1. Previously described left renal hilar fullness on comparison Chest CT dated 12/12/2022 is related t o multiple left peripelvic cysts. No evidence for urolithiasis or obstructive uropathy. 2. Colonic diverticulosis without acute diverticulitis. 3. Atherosclerotic vascular disease. Reviewed by: Alex Harris MD on 01/22/2023 7:52 PM PST Approved by: Alex Harris MD on 01/22/2023 7:52 PM PST Station ID: [id number]
== END 2023-01-22 11:00 | disposition home or self-care (01) ==
LOC: LAB 10:59
PROVIDERS: ATTEND Nurse Practitioner
DX: R93.89 Abnormal findings on diagnostic imaging of other specified body structures (principal); N28.1 Cyst of kidney, acquired; K57.30 Diverticulosis of large intestine without perforation or abscess without bleeding; I70.0 Atherosclerosis of aorta
CPT/HCPCS: 36415; 74178; 82565; Q9967

== ENCOUNTER 2023-06-08 10:46 | Outpatient (CLI) | payer MEDICARE, OTHER ==
[2023-06-08 18:19] LABS: BASOPHILS % (AUTO) 0.4 %; EOSINOPHILS # (AUTO) 0.1 10^3/uL (0.0-0.7); EOSINOPHILS % (AUTO) 1.8 %; HGB - HEMOGLOBIN 13.3 g/dL (12.0-16.0); LYMPHOCYTES # (AUTO) 1.9 10^3/uL (1.5-3.5); LYMPHOCYTES % (AUTO) 25.9 %; MEAN CORPUSCULAR HEMOGLOBIN 30.5 pg (27.0-31.0); MEAN CORPUSCULAR HGB CONC 31.7 g/dL (32.0-36.0); MEAN CORPUSCULAR VOLUME 96.3 fL (81.0-99.0); MEAN PLATELET VOLUME 10.1 fL (7.9-10.8); MONOCYTES # (AUTO) 0.6 10^3/uL (0.0-1.0); MONOCYTES % (AUTO) 8.2 %; NEUTROPHILS # (AUTO) 4.6 10^3/uL (1.5-6.6); NEUTROPHILS % (AUTO) 63.6 %; PLT - PLATELET COUNT 256 10^3/uL (130-450); RED BLOOD COUNT 4.36 10^6/uL (4.20-5.40); RED CELL DISTRIBUTION WIDTH 13.6 % (12.0-15.0); WHITE BLOOD COUNT 7.2 x10^3/uL (4.8-10.8)
[2023-06-08 18:32] LABS: ALBUMIN 4.2 g/dL (3.2-5.5); ALBUMIN/GLOBULIN RATIO 1.8 (1.0-2.2); ALKALINE PHOSPHATASE 74 IU/L (42-121); ALT ALANINE AMINOTRANSFERASE 14 IU/L (10-60); AST ASPARTATE AMINOTRANSFERASE 17 IU/L (10-42); BILIRUBIN,TOTAL 0.6 mg/dL (0.2-1.0); BUN - BLOOD UREA NITROGEN 22 mg/dL (6-20); CALCIUM 10.5 mg/dL (8.5-10.3); CARBON DIOXIDE - CO2 28 mmol/L (21-32); CHLORIDE 106 mmol/L (101-111); CREATININE 0.9 mg/dL (0.6-1.3); CRP - C-REACTIVE PROTEIN < 0.5 mg/dL (<0.5); GFR - MDRD 60 (>89); GLUCOSE 112 mg/dL (74-104); POTASSIUM 4.5 mmol/L (3.5-4.5); SODIUM 139 mmol/L (135-145); TOTAL PROTEIN 6.5 g/dL (6.4-8.9)
[2023-06-08 18:43] LABS: THYROID STIMULATING HORMONE 2.75 uIU/mL (0.34-5.60)
== END 2023-06-08 10:47 | disposition home or self-care (01) ==
LOC: LAB.N 10:46
PROVIDERS: ATTEND Nurse Practitioner
DX: R53.83 Other fatigue (principal)
CPT/HCPCS: 36415; 80053; 82607; 84443; 85025; 85651; 86140

== ENCOUNTER 2023-06-16 14:59 | Outpatient (CLI) | payer MEDICARE, OTHER ==
--- NOTE | 2023-06-16 19:42 | XRAY Report ---
PROCEDURE: Shoulder 2+V RT INDICATIONS: SHOULDER JOINT PAIN, RIGHT TECHNIQUE: 3 views of the shoulder were acquired. COMPARISON: None FINDINGS: Bones: No fractures or dislocations. No suspicious bony lesions. Visualized ribs appear intact. Soft tissues: No suspicious soft tissue calcifications. IMPRESSION: Unremarkable shoulder radiographs Reviewed by: Brady Grant MD on 06/16/2023 6:41 PM AKDT Approved by: Brady Grant MD on 06/16/2023 6:41 PM AKDT Station ID: [id number]
== END 2023-06-16 15:00 | disposition home or self-care (01) ==
LOC: DI.N 14:59
PROVIDERS: ATTEND Nurse Practitioner
DX: M25.511 Pain in right shoulder (principal)